=== PATIENT | male | born 1995 | race Caucasian/White ===

== ENCOUNTER 2019-01-28 01:09 | Emergency (ER) | payer SELFPAY ==
[~2019-01-28] VITALS: Ht 177.8 cm; Wt 64.9 kg
[2019-01-28 01:15] VITALS: Ht 177.8 cm; Wt 64.9 kg
[2019-01-28 02:00] VITALS: BP 116/68
== END 2019-01-28 02:00 | disposition home or self-care (01) ==
LOC: ED 01:09
DX: S01.511A Laceration without foreign body of lip, initial encounter (principal); W22.03XA Walked into furniture, initial encounter; Y93.B2 Activity, push-ups, pull-ups, sit-ups; Y92.89 Other specified places as the place of occurrence of the external cause; Y99.8 Other external cause status
CPT/HCPCS: 90715; J2001